=== PATIENT | male | born 1945 | race Caucasian/White ===

== ENCOUNTER 2016-10-05 20:11 | Emergency (ER) | payer MEDICARE ==
--- NOTE | ~2016-10-05 | CR132 ---
[facility] A Service of [facility] RADIOLOGY TEXT RESULTS PATIENT: AMADEO BAEZ LOCATION: [facility] : 47 UNIT #: [id number] AGE: [address]: WILL TAPIA APRN SEX: M ORDER DR: [id number] [place], [place] [address] [id number] MR#: [id number] Acc #: [id number] NAME: AMADEO BAEZ. : 1945 SEX: M STUDY DATE/TIME: 10/05/2016 20:37 UNIT: [facility]NM ROOM: STUDY DESCRIPTION: CR Forearm 2 View Lt Attending Physician: Will Tapia Aprn Ordering Physician: Will Tapia Aprn Primary Care Physician: Carlos Linares M.D. MEDICAL IMAGING REPORT This report is preliminary unless electronic signature is present EXAM Two views left forearm. Date 10/05/2016 HISTORY A 71-year-old male left forearm pain and skin tearing today after A fall. COMPARISON None. FINDINGS No fracture. No joint dislocation. No definite joint effusion. No retained opaque foreign body. Mild osteopenic change. IMPRESSION 1. Mild osteopenia. Mild spurring at the radial head. 2. No acute left forearm findings. 3. Mild spurring of the radial head. Mild osteopenia. Dictated by... Zoe Navarro M.D. THIS IS AN ELECTRONICALLY VERIFIED REPORT Zoe Navarro M.D. at 10/06/2016 2:43 PM RENA/krista TD: 10/06/2016 00:11 JOB #: [id number] [facility] A Service [facility] RADIOLOGY TEXT RESULTS PATIENT: AMADEO BAEZ LOCATION: [facility] : 47 UNIT #: [id number] AGE: [address]: WILL TAPIA APRN SEX: M ORDER DR: MEDICAL IMAGING REPORT COPY
[~2016-10-05 20:11] MED LIST: AVELOX400 M1 PO; AVODART0.5 MG PO; CALCIUM ACETAT667 M1 PO; CARVEDILOL6.25 MG PO; CLOPIDOGREL BIS75 MG PO; COREG6.25 MG PO; DIOVAN HCT 320/1 TAB PO; DIOVAN HCT 3201 EACH PO; DORYX; ESCITALOPRAM OX20 MG PO; FISH OIL 1,2001 CAP PO; FLAX SEED OIL1000 M1 PO; FLOMAX0.4 M1 DOB; FLOMAX0.4 MG PO; FUROSEMIDE40 MG PO; HCTZ PO; ISOSORBIDE MONO10 MG PO; K-DUR20 ME1 DOB; KEPPRA500 M1 DOB; KEPPRA750 MG PO; LEXAPRO PO; MICRO-K PO; MULTI-DAY1 TAB PO; MULTIVITAMIN1 UDCAP PO; NEXIUM PO; NIASPAN PO; NORVASC PO; NORVASC10 MG PO; PHOSLO667 MG PO; PLAVIX PO; ST. JOSEPH ASP325 MG PO; TRICOR145 MG DOB; VITAMIN D31000 UNIT PO
== END 2016-10-05 21:23 | disposition home or self-care (01) ==
LOC: CFTX 20:11
DX: S50.12XA Contusion of left forearm, initial encounter (principal); S60.413A Abrasion of left middle finger, initial encounter; I10 Essential (primary) hypertension; K21.9 Gastro-esophageal reflux disease without esophagitis; I25.2 Old myocardial infarction; F32.9 Major depressive disorder, single episode, unspecified; W22.8XXA Striking against or struck by other objects, initial encounter; Y92.22 Religious institution as the place of occurrence of the external cause
CPT/HCPCS: 73090; 99283